=== PATIENT | male | born 1980 | race Asian ===

== ENCOUNTER 2023-12-13 14:07 | Emergency (ER) | payer SELFPAY ==
[~2023-12-13] VITALS: Ht 167.6 cm; Wt 65.0 kg
[2023-12-13 14:15] VITALS: BP 74/121; PULSE 122; RESP 18; O2SAT 98
== END 2023-12-13 14:42 | disposition left against medical advice (07) ==
LOC: EDBD 14:07 → ER 14:07
DX: S60.512A Abrasion of left hand, initial encounter (principal); S00.81XA Abrasion of other part of head, initial encounter; R46.89 Other symptoms and signs involving appearance and behavior; Z53.21 Procedure and treatment not carried out due to patient leaving prior to being seen by health care provider; X58.XXXA Exposure to other specified factors, initial encounter; Y93.89 Activity, other specified; Y92.89 Other specified places as the place of occurrence of the external cause; Y99.8 Other external cause status